=== PATIENT | male | born 1970 | race African-American/Black ===

== ENCOUNTER → 2019-03-11 | Outpatient (CLI) | payer BC ==
--- NOTE | 2019-03-12 08:10 | RADIOLOGY REPORT (SQ) ---
EXAM DESCRIPTION: WRIST RIGHT 3 VIEWS COMPLETED DATE/TIME: 03/11/2019 7:16 pm REASON FOR STUDY: M25.531 PAIN IN RIGHT WRIST M25.531 PAIN IN RIGHT WRIST M79.644 PAIN IN RIGHT FI NGER(S) COMPARISON: None. NUMBER OF VIEWS: Three views. TECHNIQUE: AP, lateral, and oblique radiographic images acquired of the right wrist. LIMITATIONS: None. FINDINGS: MINERALIZATION: Normal. BONES: No acute fracture or dislocation. No worrisome bone lesions. Normal alignment. No significant osteophytes. JOINTS: No erosions. No noelle-articular osteopenia. No chondrocalcinosis. SOFT TISSUES: No swelling. No calcifications. OTHER: No other significant finding. IMPRESSION: NEGATIVE STUDY OF THE RIGHT WRIST. NO EXPLANATION FOR PAIN. TECHNICAL DOCUMENTATION: JOB ID: [id number] [employer]- All Rights Reserved Reading location - IP/workstation name: [email or web address]
--- NOTE | 2019-03-12 08:11 | RADIOLOGY REPORT (SQ) ---
EXAM DESCRIPTION: HAND RIGHT 3 VIEWS COMPLETED DATE/TIME: 03/11/2019 7:16 pm REASON FOR STUDY: M79.644 PAIN IN RIGHT FINGER(S) M25.531 PAIN IN RIGHT WRIST M79.644 PAIN IN RIGH T FINGER(S) COMPARISON: None. EXAM PARAMETERS: NUMBER OF VIEWS: Three views. TECHNIQUE: AP, lateral and oblique radiographic images acquired of the right hand. LIMITATIONS: None. FINDINGS: MINERALIZATION: Normal. BONES: No acute fracture or dislocation. No worrisome bone lesions. No significant osteophytes. JOINTS: No erosions. No noelle-articular osteopenia. No chondrocalcinosis. SOFT TISSUES: No swelling. No calcifications. OTHER: No other significant finding. IMPRESSION: NEGATIVE STUDY OF THE RIGHT HAND. NO EXPLANATION FOR PAIN. TECHNICAL DOCUMENTATION: JOB ID: [id number] [employer]- All Rights Reserved Reading location - IP/workstation name: [email or web address]
== END ==
LOC: RAD 18:54
PROVIDERS: ATTEND Family Medicine
DX: M25.531 Pain in right wrist (principal); M79.644 Pain in right finger(s)

== ENCOUNTER → 2019-12-20 | Outpatient (CLI) | payer BC ==
--- NOTE | 2019-12-20 10:03 | RADIOLOGY REPORT (SQ) ---
EXAM DESCRIPTION: MRI RT UPPER JOINT WITHOUT IMAGES COMPLETED DATE/TIME: 12/20/2019 9:03 am REASON FOR STUDY: PAIN IN RIGHT SHOULDER M25.511 PAIN IN RIGHT SHOULDER COMPARISON: None. TECHNIQUE: Right shoulder images acquired and stored on PACS. Multiplanar imaging to include fat sen sitive sequences such as T1, water sensitive sequences such as FST2/STIR, cartilage sensitive sequenc es such as FSPD/gradient-echo sequences. LIMITATIONS: None. FINDINGS: BONE MARROW AND CORTEX: No worrisome bone lesions or marrow replacement. No occult fractur es. JOINT OR BURSAL EFFUSION: No significant joint or bursal fluid. No suggestion of loose bodies. GLENO-HUMERAL ARTICULATION: Normal articulation. No subluxation. No cystic change. No osteophytes or cartilage loss. ACROMION AND AC JOINT: AC arthropathy. Mild hypertrophy with regional bone and soft tissue edema. S mall subchondral cysts or erosions in the distal clavicle particularly. No aggressive resorption oth erwise suggested. Type 2 acromion. ROTATOR CUFF AND INTERVAL: Intrasubstance fluid signal in the distal supraspinatus near insertion. C onsistent with partial tear. Mild tear extending into the footprint of the cuff in the mid supraspin atus insertion. No full-thickness breech. Mild articular surface fraying also noted. No overt fatt y atrophy. Other components of the cuff are intact. LABRUM AND BICEPS LABRAL COMPLEX: No high-grade labral tear detected. No biceps disruption or disp lacement evident. REMAINDER OF LABRUM AND IGHL : Generally intact without secondary signs of tear. PERIARTICULAR AND ADJACENT SOFT TISSUES: No masses or abnormal nodes. OTHER: No other significant finding. IMPRESSION: 1. Partial thickness cuff tear. No full-thickness breech identified. 2. AC arthropathy. Fairly marked associated regional soft tissue and bone edema, particularly on the clavicular side of the joint. Associated small cysts or erosions without aggressive bone resorption currently identified. TECHNICAL DOCUMENTATION: JOB ID: [id number] 2010 [employer]- All Rights Reserved Reading location - IP/workstation name: [email or web address]
== END ==
LOC: RAD 08:22
PROVIDERS: ATTEND Family Medicine
DX: M75.111 Incomplete rotator cuff tear or rupture of right shoulder, not specified as traumatic (principal); M25.511 Pain in right shoulder